=== PATIENT | female | born 1990 | race American Indian/Alaskan Native ===

== ENCOUNTER 2018-04-28 07:11 | Emergency (ER) | payer OTHER ==
[2018-04-28 07:20] VITALS: BP 119/80
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
[2018-04-28] MEDS ORDERED: TYLENOL PO ONE (08:41)
[2018-04-28] MEDS ORDERED: TORADOL IM ONE (09:52)
[2018-04-28 10:17] LABS: HCG Qualitative,Urine Negative (Negative)
[2018-04-28] MEDS ORDERED: ULTRAM PO ONE (10:51)
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
== END 2018-04-28 12:10 | disposition home or self-care (01) ==
LOC: ED 07:11
DX: S00.12XA Contusion of left eyelid and periocular area, initial encounter (principal); S00.11XA Contusion of right eyelid and periocular area, initial encounter; H11.33 Conjunctival hemorrhage, bilateral; Y08.89XA Assault by other specified means, initial encounter; Y93.89 Activity, other specified; Y92.89 Other specified places as the place of occurrence of the external cause; Y99.8 Other external cause status
CPT/HCPCS: 70450; 81025; 96372; 99284; J1885